=== PATIENT | male | born 1990 | race Hispanic/Latino ===

== ENCOUNTER 2019-06-20 13:00 | Emergency (ER) | payer SELFPAY | END 2019-06-20 16:00 | disposition home or self-care (01) | LOC: ERS 13:00 | DX: K03.81 Cracked tooth (principal); K02.9 Dental caries, unspecified | CPT/HCPCS: 99282 ==

== ENCOUNTER 2024-06-03 17:17 | Emergency (ER) | payer SELFPAY | END 2024-06-03 18:48 | disposition home or self-care (01) | LOC: ERS 17:17 | DX: R20.2 Paresthesia of skin (principal) | CPT/HCPCS: 93005; 99283 ==